=== PATIENT | female | born 1960 | race Caucasian/White ===

== ENCOUNTER 2016-07-17 15:54 | Emergency (ER) | payer OTHER ==
[2016-07-17 16:05] VITALS: BP 132/85; PULSE 78; TEMP 97.5; BMI 31.8
[2016-07-17] MEDS ORDERED: MAGNESIUM SULF 50% (8.12 MEQ/2 ML-1 GM VIAL) IVPB ONE (16:37)
[2016-07-17] MEDS ORDERED: METOCLOPRAMIDE HCL INJECTION 10 MG/2 ML VIAL IVPUSH ONE (16:37)
[2016-07-17] MEDS ORDERED: SODIUM CHLORIDE 1,000 ML IV ONE (16:37)
--- NOTE | 2016-07-17 16:37 | PDOC ---
History of Present Illness - General Chief Complaint: Headache Stated Complaint: HEADACHE Time Seen by Provider: 07/17/16 16:24 History Source: Patient Exam Limitations: No Limitations - History of Present Illness Initial Comments: 07/17/16 16:44 55y F hx of hypothyroidism, migraine headaches, prseents with headache. The patient has been having URI like symptoms for the past 2 weeks, including nasal congestion, mild cough, and states last night started to have mild frontal headache. When she woke up she noticed her headache was mor severe and was posterior b/l radiating to front and is steady aching. She endorses feeling nausaus, with photophobia, phonophobia. Pt denies any numbnes/tingling/weakness , vision changes, neck pain, back pain. Pt states that th nature of her headache is similar to her previous headaches, she was formerly on a triptan but stoppd taking it due to hearing that her friend had a heart attack after taking it. She typicalyl takes excedrin with relief but she has not taken it today. pt denies any fever/chills, cp, sob, leg swelling. no recent head trauma/ head injury. Past History - Past Medical History Allergies/Adverse Reactions: Allergies Allergy/AdvReac Type Severity Reaction Status Date / Time No Known Allergies Allergy Verified 07/17/16 16:05 Home Medications: Ambulatory Orders Levothyroxine [Synthroid -] 75 mcg PO DAILY 07/17/16 Thyroid Disease: Yes Other medical history: MIGRAINES - Psycho/Social/Smoking Cessation Hx Anxiety: No Suicidal Ideation: No Smoking History: Never smoked Hx Alcohol Use: No Drug/Substance Use Hx: No Substance Use Type: None Review of Systems - Review of Systems Able to Perform ROS?: Yes Comments:: 07/17/16 17:05 Constitutional - no reported Fever, Chills, weakness, HEENT: no reported vision changes, sore throat Respiratory: no reported cough, sob, hemoptysis Cardiac: no reported chest pain, palpitations, light headedness, leg swelling Abd/GI: +nausea, vomiting, no reported abd pain, blood per rectum, melena, diarrhea : no reported dysuria, frequency, discharge Musculskelatal - no reported back pain, joint swelling skin - no reported bruising, erythema, rash neurological: +headache, photophobia, phonophobia no reported numbness, focal weakness, tingling, ataxia, weakness hematologic: no reported anemia, easy bruising, easy bleeding *Physical Exam - Vital Signs Last Vital Signs Temp Pulse Resp BP Pulse Ox 97.5 F L 78 20 132/85 100 07/17/16 16:01 07/17/16 16:01 07/17/16 16:01 07/17/16 16:01 07/17/16 16:01 - Physical Exam Comments: 07/17/16 17:06 GENERAL: The patient is awake, alert, and fully oriented, Nontoxic - in no acute distress. HEAD: Normocephalic, atraumatic. EYES: extraocular movements intact, sclera anicteric, conjunctiva clear. ENT: Normal voice, Moist mucous membranes. NECK: Normal range of motion, supple LUNGS: Breath sounds equal, clear to auscultation bilaterally. No wheezes, no rhonchi, no rales. HEART: Regular rate and rhythm, normal S1 and S2 without murmur, rub or gallop. ABDOMEN: Soft, nontender, normoactive bowel sounds. No guarding, no rebound. No CVA tenderness EXTREMITIES: Normal range of motion, no edema. No clubbing or cyanosis. No cords, erythema, or tenderness. NEUROLOGICAL: No facial assymetry, Normal speech, moving all 4 extremities spontaneously and symmetrically PSYCH: Normal mood, normal affect. SKIN: Warm, Dry, normal turgor, ED Treatment Course - LABORATORY CBC & Chemistry Diagram: 07/17/16 18:05 07/17/16 16:56 Medical Decision Making - Medical Decision Making 07/17/16 17:12 suspect migrain exacerbation secondary to uri/nasal congestion wlil treat with reglan, magnesium, fluids will reassess 07/17/16 19:30 The patient's labs were reviewed and they are unremarkable no luekocytosis/fever to suggest sinusitis will treat supportively with huydration at home, recommend netti pot she is feeling improved suspect patient's symptoms be secondary to nasal congestion headache will have pt fu with PMD in 2- days for reassessment I discussed the physical exam findings, ancillary test results and final diagnoses with the patient. I answered all of the patient's questions. The patient was satisfied with the care received and felt comfortable with the discharge plan and treatment plan. The patient will call their primary care physician within 24 hours to arrange follow-up and will return to the Emergency Department with any new, persistent or worsening symptoms. *DC/Admit/Observation/Transfer Diagnosis at time of Disposition: Sinus congestion Migraine Qualifiers: Migraine type: other Status migrainosus presence: without status migrainosus Intractability: not intractable Qualified Code(s): G43.809 - Other migraine, not intractable, without status migrainosus - Discharge Dispostion Disposition: HOME Condition at time of disposition: Improved Admit: No - Referrals Referrals: Angela Jones MD [Primary Care Provider] - - Patient Instructions Printed Discharge Instructions: DI for Nasal Congestion, DI for Migraine Additional Instructions: Return to the emergency department immediately with ANY new, persistent or worsening symptoms including any worsening headache, numbness, tingling, weakness, vision changes, neck pain or any other concerns. Make sure to stay wel lhydrated. Use a netti pot to help alleviate your sypmtoms. Take ibuprofen/tylenol for your headache. You MUST call and follow up with Dr. Jones in 2-3 days for further evaluation of your symptoms. Results were discussed with you. Please make sure your doctor reviews the results of your emergency evaluation. Print Language: BRITISH
[2016-07-17] MEDS ORDERED: METOCLOPRAMIDE HCL INJECTION 10 MG/2 ML VIAL ONE (16:52)
[2016-07-17] MEDS ORDERED: MAGNESIUM SULF 50% (8.12 MEQ/2 ML-1 GM VIAL) ONE (16:53)
[2016-07-17 18:03] LABS: BASOPHIL 0.2 % (0-2.0); EOSINOPHIL 0.1 % (0-4.5); MCH 29.5 pg (25.7-33.7); MCHC 32.7 g/dl (32.0-36.0); MEAN CELL VOLUME 90.1 fl (80-96); MEAN PLT VOLUME 9.1 fl (7.5-11.1); NEUTROPHILS 77.6 % (42.8-82.8); PLATELET COUNT 197 K/MM3 (134-434); WHITE BLOOD COUNT 5.5 K/mm3 (4.0-10.0)
[2016-07-17 18:13] LABS: ALBUMIN 4.2 g/dl (3.4-5.0); ANION GAP 7 (8-16); CALCIUM 8.8 mg/dL (8.5-10.1); CO2 26 mmol/L (21-32); CREATININE 0.6 mg/dL (0.55-1.02); GLUCOSE,RANDOM 99 mg/dL (74-106); SGOT/AST 17 U/L (15-37); SGPT/ALT 26 U/L (12-78)
[2016-07-17 18:15] LABS: ALK PHOS 75 U/L (45-117); BILIRUBIN,TOTAL 1.9 mg/dL (0.2-1.0); TOT PROT 7.8 g/dl (6.4-8.2)
[2016-07-17] MEDS ORDERED: KETOROLAC TROMETHAMINE 30 MG/1 ML VIAL IVPUSH ONE (18:28)
[2016-07-17] MEDS ORDERED: KETOROLAC TROMETHAMINE 30 MG/1 ML VIAL ONE (18:40)
== END 2016-07-17 20:13 | disposition home or self-care (01) ==
LOC: JER 15:54
PROC: 3E0333Z Introduction of Anti-inflammatory into Peripheral Vein, Percutaneous Approach (ICD-10-PCS; principal; 2016-07-17)
PROC: 3E033GC Introduction of Other Therapeutic Substance into Peripheral Vein, Percutaneous Approach (ICD-10-PCS; 2016-07-17)
DX: G43.809 Other migraine, not intractable, without status migrainosus (principal); J34.89 Other specified disorders of nose and nasal sinuses
CPT/HCPCS: 36415; 80053; 85025; 99282-25